=== PATIENT | female | born 1965 | race Caucasian/White ===

== ENCOUNTER → 2017-01-01 | Outpatient (CLI) | payer OTHER ==
[~2017-01-01] MED LIST: FLAXPOW PO; GLUCPOW27 PO; HYDR-3516 PO
[2017-01-01 10:28] LABS: AUTOMATED NEUTROPHIL # 3.5 TH/MM3 (1.8-7.7); BASOPHIL % 0.4 % (0.0-2.0); EOSINOPHIL # 0.1 TH/MM3 (0-0.4); HEMATOCRIT 38.1 % (35.0-46.0); HEMO FLAGS DIFF FINAL; LYMPH % 28.5 % (9.0-44.0); LYMPHOCYTE # 1.6 TH/MM3 (1.0-4.8); MEAN CELL VOLUME 88.2 FL (80.0-100.0); MEAN CORPUSCULAR HEMOGLOBIN 29.6 PG (27.0-34.0); MEAN CORPUSCULAR HGB CONC 33.6 % (32.0-36.0); MONO % 6.2 % (0.0-8.0); NEUT % 63.9 % (16.0-70.0); PLATELET COUNT 191 TH/MM3 (150-450); RED BLOOD COUNT 4.32 MIL/MM3 (4.00-5.30); RED CELL DISTRIBUTION WIDTH 13.3 % (11.6-17.2); WHITE BLOOD COUNT 5.5 TH/MM3 (4.0-11.0)
[2017-01-01 10:45] LABS: BACTERIA, URINE RARE /hpf; BLOOD, URINE NEG (NEG); COMMENT (UR) CULT NOT INDICATED; CULTURE IF INDICATED CULT NOT INDICATED; GLUCOSE,URINE NEG (NEG); KETONE, URINE NEG (NEG); NITRITE,URINE NEG (NEG); SQUAMOUS EPITHELIAL CELL URINE 4 /hpf (0-5); URINE COLOR YELLOW (YELLW/STRAW)
[2017-01-01 10:52] LABS: ALKALINE PHOSPHATASE 48 U/L (45-117); ALT (GPT) 20 U/L (10-53); ANION GAP 5 MEQ/L (5-15); AST (GOT) 21 U/L (15-37); BICARBONATE 30.2 MEQ/L (21.0-32.0); BLOOD UREA NITROGEN 12 MG/DL (7-18); CHLORIDE 104 MEQ/L (98-107); GLOMERULAR FILTRATION RATE 75 ML/MIN (>89); GLUCOSE,FASTING 105 MG/DL (74-99); POTASSIUM 4.1 MEQ/L (3.5-5.1); SODIUM (NA) 139 MEQ/L (136-145); TOTAL BILIRUBIN ADULT 0.5 MG/DL (0.2-1.0)
--- NOTE | 2017-01-01 12:01 | EKG ---
Date Performed: 01/01/2017 Time Performed: 10:22:53 PTAGE: 51 years EKG: Sinus bradycardia Normal EKG NO PREVIOUS TRACING DOCTOR: Giovani Butler Interpretating Date/Time 01/01/2017 12:00:17
--- NOTE | 2017-01-01 12:08 | RADRPT ---
EXAM DATE/TIME: 01/01/2017 11:10 [facility] COMPARISON: No previous studies available for comparison. INDICATIONS : Evaluate for pneumonia,pneumothorax and communicable diseases. Pre-op for rectal surgery MEDICAL HISTORY : Carcinoma, anal. SURGICAL HISTORY : None. ENCOUNTER: Initial ACUITY: 1 day PAIN SCORE: 0/10 LOCATION: chest FINDINGS: PA and lateral views of the chest demonstrate the lungs to be symmetrically aerated without evidence of mass, infiltrate or effusion. The cardiomediastinal contours are unremarkable. Osseous structure s are intact. CONCLUSION: No acute disease. Derick Thayer MD on January 01, 2017 at 12:06 Board Certified Radiologist. This report was verified electronically.
== END ==
LOC: CPRE 09:43
PROVIDERS: ATTEND Colon & Rectal Surgery
DX: Z01.810 Encounter for preprocedural cardiovascular examination (principal); Z01.811 Encounter for preprocedural respiratory examination; Z01.812 Encounter for preprocedural laboratory examination; D3A.026 Benign carcinoid tumor of the rectum
CPT/HCPCS: 36415; 71020; 80053; 81001; 82378; 85025; 93005

== ENCOUNTER → 2017-01-08 | Day surgery (SDC) | payer OTHER ==
[~2017-01-08] VITALS: Ht 167.6 cm; Wt 66.8 kg
[~2017-01-08] MED LIST changes: +ACETAMINOPHEN 1000 MG/100 ML VIAL IV ONE; +ACETAMINOPHEN/HYDROcodone 325 MG/5 MG TAB PO PRN; +BACITRACIN TOP OINT 15 GM TUBE ONE; +BUPIVACAINE HCL PF 0.5% 30 ML VIAL ONE; +DEXAMETHASONE SOD PHOS 4 MG/ML VIAL ONE; +DO NOT ADM ANY ANTICOAGULANT DRUGS XX PRN; +FAMOTIDINE 20 MG/2 ML VIAL ONE; +INSULIN HUMAN REGULAR 1,000 UNITS/10 ML VIAL SQ PRN; +LACTATED RINGER'S 1000 ML INJ 1,000 ML IV ONE; +LACTATED RINGER'S 1000 ML IV SCH; +LIDOCAINE 0.5%/EPINEPHrine 1:200,000 SOLN 50 ML VIAL INFIL ONE; +LIDOCAINE 0.5%/EPINEPHrine 1:200,000 SOLN 50 ML VIAL ONE; +METOPROLOL TARTRATE 25 MG TAB PO PRN; +MIDAZOLAM HCL 2 MG/2 ML VIAL ONE; +MORPHINE SULFATE 4 MG/ML INJ IM PRN; +NEOSTIGMINE 3 MG/3 ML SYR IV ONE; +ONDANSETRON HCL 4 MG/2 ML VIAL IV PUSH ONE; +ONDANSETRON HCL 4 MG/2 ML VIAL IV PUSH PRN; +PROPOFOL 200 MG/20 ML AMP IV ONE; +SODIUM CHLORID 0.9% 500 ML IV SCH; +ceFAZolin INJ 1,000 MG VIAL IV ONE; +fentaNYL CITRATE 250 MCG/5 ML AMP ONE; +metroNIDAZOLE 500 MG INJ 100 ML IV ONE
[2017-01-08 11:39] VITALS: BP 135/68; PULSE 55; RESP 16; TEMP 97.7; O2SAT 100
--- NOTE | 2017-01-08 13:11 | PD.HP.UP ---
H&P Update Note The Pre-Admit History and Physical Examination regarding the above named patient was reviewed (including, but not limited to, vital signs, heart, lungs, co-morbid conditions), and upon re-examination it is noted that: the patient's condition has not significantly changed since the last examination. Saida Butler MD Jan 08, 2017 13:11
[2017-01-08 15:55] VITALS: BP 117/69; PULSE 46; RESP 16; TEMP 97.7; O2SAT 100
--- NOTE | 2017-01-09 10:21 | MP ---
cc: ALEXIA BUTLER MD, GEORGE DATE OF SURGERY 01/08/2017 PREOPERATIVE DIAGNOSIS Rectal carcinoid POSTOPERATIVE DIAGNOSIS Rectal carcinoid PROCEDURE Transanal excision of rectal carcinoid. SURGEON Alexia Butler MD ANESTHESIA General per ET tube ESTIMATED BLOOD LOSS Less than 50 cc OPERATIVE INDICATIONS The patient is a 51-year-old female who on recent colonoscopy was noted to have a 7-8 mm carcinoid in the anterior rectum. OPERATIVE FINDINGS A 7-8 mm carcinoid in the anterior rectum. OPERATIVE REPORT The patient was brought to the operating room, and placed in the supine position. After induction of general anesthesia, the patient was placed in candy cane stirrups and all bony prominences were carefully padded. The skin of the perineal area was then prepped and draped in the usual sterile fashion. A Matt bivalve was then placed and the carcinoid was clearly visualized on the anterior surface of the rectum approximately 12 cm above the anal verge. A finger was placed in the vagina. There was no apparent retraction or connection to the vaginal tissue. The submucosal tissue was then infiltrated with 0.5% Marcaine with 1:100,000 epinephrine. The rectal carcinoma was then dissected free, trying to maintain a 5 mm edge circumferentially and going deep to the level of the muscle. Several times during the procedure, a finger was placed in the vagina to be sure that no encroachment on the vaginal tissue was noted. The specimen was then sent for pathology. The muscular tissue was reapproximated in an interrupted fashion using 3-0 Vicryl and the mucosa and submucosa were reapproximated in an interrupted [id number] fashion using 3-0 Vicryl. At the close of the procedure, there was sign of any significant bleeding and the incision looked well opposed. All sponge, needle and sponge counts were correct and the patient was returned to the post anesthesia care in stable condition. MD CHATA Alegria/VAHIDL /2:36 PM /10:12 AM EDUARDO
== END | disposition home or self-care (01) ==
LOC: HSDC 10:47
PROVIDERS: ATTEND Colon & Rectal Surgery
DX: D3A.026 Benign carcinoid tumor of the rectum (principal); Z83.71 Family history of colonic polyps
CPT/HCPCS: 00902; 45172; 88305; J0131; J0690; J1100; J2250; J2405; J2710; J3010; J7040; J7120